=== PATIENT | female | born 1995 | race Caucasian/White ===

== ENCOUNTER 2017-03-15 10:31 | Emergency (ER) | payer OTHER ==
[~2017-03-15] VITALS: Ht 157.5 cm; Wt 52.2 kg
[2017-03-15 10:59] LABS: Urine RBC None Seen /hpf (0 - 4)
[2017-03-15 11:27] VITALS: BP 150/93
[2017-03-15 11:29] LABS: Urine Bilirubin Negative (Negative); Urine Blood Negative /uL (Negative); Urine Color Yellow (Yellow); Urine Glucose Normal (Normal); Urine Ketone Negative (Negative); Urine Mucus FEW (None Seen); Urine Nitrite Negative (Negative); Urine Squamous Epithelial Cell MOD /hpf (<5); Urine Urobilinogen Normal (Negative)
== END 2017-03-15 12:22 | disposition home or self-care (01) ==
LOC: ER 10:31
DX: O20.0 Threatened abortion (principal); Z3A.01 Less than 8 weeks gestation of pregnancy
CPT/HCPCS: 36415; 81001; 84702

== ENCOUNTER 2017-03-17 10:27 | Emergency (ER) | payer OTHER ==
[~2017-03-17] VITALS: Ht 157.5 cm; Wt 54.4 kg
[2017-03-17 11:19] VITALS: BP 131/85
== END 2017-03-17 12:13 | disposition home or self-care (01) ==
LOC: ER 10:27
DX: O03.9 Complete or unspecified spontaneous abortion without complication (principal); O26.851 Spotting complicating pregnancy, first trimester
CPT/HCPCS: 36415; 84702

== ENCOUNTER 2019-12-22 10:02 | Emergency (ER) | payer OTHER ==
[~2019-12-22] VITALS: Ht 157.5 cm; Wt 61.2 kg
[2019-12-22 10:19] VITALS: BP 135/91
[2019-12-22] MEDS ORDERED: METHOCARBAMOL 500 MG TAB PO ONE (11:00)
== END 2019-12-22 11:38 | disposition home or self-care (01) ==
LOC: ER 10:02
DX: S33.5XXA Sprain of ligaments of lumbar spine, initial encounter (principal); N39.0 Urinary tract infection, site not specified; X58.XXXA Exposure to other specified factors, initial encounter; Y93.89 Activity, other specified; Y92.89 Other specified places as the place of occurrence of the external cause; Y99.8 Other external cause status
CPT/HCPCS: 72110; 81002

== ENCOUNTER 2020-01-22 07:36 | Emergency (ER) | payer OTHER ==
[~2020-01-22] VITALS: Ht 157.5 cm; Wt 59.0 kg
[2020-01-22 07:51] VITALS: BP 126/87
[2020-01-22 08:44] LABS: Urine WBC None Seen /hpf (0 - 5)
[2020-01-22 09:05] LABS: Urine Bacteria NONE SEEN /hpf (None Seen); Urine Blood Negative /uL (Negative); Urine Hyaline Cast FEW /lpf (0 - 2); Urine Specific Gravity 1.011 (1.001-1.035)
== END 2020-01-22 09:25 | disposition home or self-care (01) ==
LOC: ER 07:36
DX: O26.891 Other specified pregnancy related conditions, first trimester (principal); Z3A.01 Less than 8 weeks gestation of pregnancy; Z76.0 Encounter for issue of repeat prescription
CPT/HCPCS: 36415; 81001; 84702